=== PATIENT | female | born 2000 | race Two or more races ===

== ENCOUNTER 2020-02-02 16:07 | Emergency (ER) | payer MEDICAID, OTHER ==
[~2020-02-02] VITALS: Ht 162.6 cm; Wt 54.4 kg
[2020-02-02] MEDS ORDERED: SODIUM CHLORIDE 0.9% 1,000 ML IVB ONE (17:09)
[2020-02-02 17:12] LABS: Basophils # (auto) 0.1 10 ^3/uL (0-0.2); Basophils % (auto) 1.2 % (0.0-2.0); Eosinophils # (auto) 0.5 10 ^3/uL (0-0.8); Eosinophils % (auto) 6.7 % (0.0-7.0); Hematocrit 37.9 % (36.0-46.0); Hemoglobin 12.5 g/dL (12.2-16.2); Lymphocytes # (auto) 1.8 10 ^3/uL (0.4-5.4); Lymphocytes % (auto) 25.2 % (10.0-50.0); Mean Corpuscular Hemoglobin 30.8 pg (28.0-32.0); Mean Corpuscular Volume 93.3 fL (80.0-100.0); Monocytes # (auto) 0.5 10 ^3/uL (0-1.3); Monocytes % (auto) 6.4 % (0.0-12.0); Neutrophils # (auto) 4.4 10 ^3/uL (1.6-8.6); Neutrophils % (auto) 60.5 % (37.0-80.0); Platelet Count (auto) 250 10^3/uL (140-450); Red Blood Cells 4.06 10^6/uL (4.0-5.20); Red Cell Distribution Width 13.3 % (11.8-14.3); White Blood Cell 7.3 10^3/uL (4.4-10.8)
[2020-02-02 17:24] LABS: Albumin 3.2 g/dL (3.4-5.0); Anion Gap 1 (5-15); Blood Urea Nitrogen 12 mg/dL (7-18); Calcium 7.6 mg/dL (8.5-10.1); Carbon Dioxide 29 mmol/L (21-32); Chloride 110 mmol/L (98-107); Glucose 89 mg/dL (74-106); INR 0.98 (0.9-1.15); Magnesium 2.3 mg/dL (1.6-2.6); Partial Thromboplastin Time 23.4 sec (23.0-31.2); Potassium 3.9 mmol/L (3.5-5.1); Sodium 140 mmol/L (136-145)
[2020-02-02 17:32] LABS: Alanine Aminotransferase 28 U/L (13-56); Alkaline Phosphatase 63 U/L (45-117); Aspartate Aminotransferase 18 U/L (15-37); Bilirubin, Total 0.2 mg/dL (0.2-1.0); GFR African American 106 mL/min; GFR Non-African American 88 mL/min; Total Protein 5.8 g/dL (6.4-8.2)
[2020-02-02 18:32] VITALS: BP 105/68
== END 2020-02-02 18:32 | disposition home or self-care (01) ==
LOC: ER 16:07 → EDBD 16:07 → ER 18:32
DX: N92.0 Excessive and frequent menstruation with regular cycle (principal); R55 Syncope and collapse; N39.0 Urinary tract infection, site not specified; J45.909 Unspecified asthma, uncomplicated
CPT/HCPCS: 36415; 80053; 83735; 84443; 84484; 85025; 85610; 85730; 93005; 96360; 99284; J7030